=== PATIENT | female | born 1965 | race Caucasian/White ===

== ENCOUNTER 2016-12-29 15:39 | Outpatient (CLI) | payer OTHER ==
[~2016-12-29 15:39] MED LIST: DOCU-144 PO; HYDR-1189 PO; IBUP-1480 PO
== END 2016-12-29 18:34 | disposition home or self-care (01) ==
LOC: SRD 15:39
PROVIDERS: ATTEND Family Medicine
DX: Z12.31 Encounter for screening mammogram for malignant neoplasm of breast (principal); M43.17 Spondylolisthesis, lumbosacral region
CPT/HCPCS: 72110; G0202

== ENCOUNTER 2018-02-07 12:59 | Inpatient (IN) | payer BC, OTHER ==
[~2018-02-07] VITALS: Ht 170.2 cm; Wt 64.6 kg
[~2018-02-07 12:59] MED LIST changes: -IBUP-1480 PO; +IBUP-1971 PO
[2018-02-07 13:06] VITALS: BP_SYST 125
[2018-02-07] MEDS ORDERED: NITROGLYCERIN 0.4 MG TAB.SUBL SL ONE ×2 (13:45→17:00)
[2018-02-07] MEDS ORDERED: ASPIRIN 81 MG TAB.CHEW PO ONE (13:45)
[2018-02-07 14:02] LABS: BASOPHILS # (AUTO) 0.1 K/uL (0.0-0.2); BASOPHILS % (AUTO) 1.9 % (0.0-2.0); EOSINOPHILS # (AUTO) 0.2 K/uL (0.0-0.4); EOSINOPHILS % (AUTO) 2.3 % (0.0-4.0); HEMATOCRIT 43.6 % (36-48); HEMOGLOBIN 14.2 g/dL (12.0-16.0); LYMPHOCYTES # (AUTO) 2.8 K/uL (1.0-5.5); LYMPHOCYTES % (AUTO) 38.9 % (20.5-51.5); MEAN CORPUSCULAR HEMOGLOBIN 29 pg (27-31); MEAN CORPUSCULAR HGB CONC 33 % (32-36); MEAN CORPUSCULAR VOLUME 87 fL (79.0-98.0); MONOCYTES # (AUTO) 0.5 K/uL (0.0-1.0); MONOCYTES % (AUTO) 6.7 % (1.7-9.3); NEUTROPHILS # (AUTO) 3.6 K/uL (1.8-7.7); NEUTROPHILS % (AUTO) 50.2 % (40.0-70.0); PLATELET COUNT (AUTO) 219 K/uL (130-430); RED BLOOD CELL COUNT(AUTO) 4.99 MIL/uL (4.2-6.2); RED CELL DISTRIBUTION WIDTH 13.6 % (9.0-15.0); WHITE BLOOD COUNT (AUTO) 7.2 K/uL (4.8-10.8)
[2018-02-07 14:32] LABS: PROTHROMBIN TIME 10.3 SECS (9.5-12.5)
[2018-02-07 14:43] LABS: CALCIUM 9.5 mg/dL (8.4-11.0); CREATININE 0.65 mg/dL (0.55-1.30); POTASSIUM 3.6 mmol/L (3.5-5.1)
[2018-02-07 14:47] LABS: ALBUMIN 3.6 g/dL (3.4-4.8); TOTAL BILIRUBIN 0.6 mg/dL (0.0-1.0)
[2018-02-07 17:10] VITALS: BP_SYST 108
[2018-02-07] MEDS ORDERED: NITROGLYCERIN 0.4 MG TAB.SUBL SL PRN (17:45)
[2018-02-07] MEDS ORDERED: ACETAMINOPHEN 325 MG TABLET PO PRN (17:45)
[2018-02-07] MEDS ORDERED: TEMAZEPAM 15 MG CAPSULE PO PRN (17:45)
[2018-02-07] MEDS ORDERED: ONDANSETRON HCL 4 MG/2 ML VIAL IVP PRN (17:45)
[2018-02-07] MEDS ORDERED: MORPHINE 2 MG/ML INJ. SYRINGE IVP PRN (17:45)
[2018-02-07 20:00] VITALS: BP_SYST 105
[2018-02-07 23:13] VITALS: BP_SYST 114
[2018-02-08 06:54] LABS: ANION GAP 7 (5-15); CALCIUM 9.2 mg/dL (8.4-11.0); CHLORIDE 106 mmol/L (98-107); CREATININE 0.76 mg/dL (0.55-1.30); GLUCOSE 93 mg/dL (70-99); POTASSIUM 3.7 mmol/L (3.5-5.1); SODIUM SERUM 140 mmol/L (136-145); UREA NITROGEN, BLOOD 15 mg/dL (8-21)
[2018-02-08 06:57] LABS: GFR AFRICAN AMERICAN 102 mL/min (>90)
[2018-02-08 07:08] LABS: ALANINE AMINOTRANSFERASE 22 U/L (12-78); ALBUMIN 3.4 g/dL (3.4-4.8); ASPARTATE AMINOTRANSFERASE 15 U/L (10-37); FREE T4 (FREE THYROXINE) 0.9 ng/dl (0.8-1.5); THYROID STIMULATING HORMONE 0.83 uIu/mL (0.36-3.74); TOTAL BILIRUBIN 0.8 mg/dL (0.0-1.0)
[2018-02-08 07:18] VITALS: BP_SYST 112
[2018-02-08 07:22] LABS: HEMATOCRIT 43.2 % (36-48); HEMOGLOBIN 14.1 g/dL (12.0-16.0); MEAN CORPUSCULAR HEMOGLOBIN 29 pg (27-31); MEAN CORPUSCULAR HGB CONC 33 % (32-36); MEAN CORPUSCULAR VOLUME 87 fL (79.0-98.0); PLATELET COUNT (AUTO) 208 K/uL (130-430); RED BLOOD CELL COUNT(AUTO) 4.96 MIL/uL (4.2-6.2); RED CELL DISTRIBUTION WIDTH 13.4 % (9.0-15.0); WHITE BLOOD COUNT (AUTO) 6.1 K/uL (4.8-10.8)
[2018-02-08 07:53] LABS: CHOLESTEROL 183 mg/dL (<200); HDL CHOLESTEROL 41 mg/dL (>55); LDL CHOLESTEROL 139 mg/dL (<100); TRIGLYCERIDES 102 mg/dL (30-150)
[2018-02-08 08:23] LABS: BASOPHILS % (MANUAL) 0 % (0-2); EOSINOPHILS % (MANUAL) 2 % (0-7); LYMPHOCYTES % (MANUAL) 34 % (20-46); MONOCYTES % (MANUAL) 13 % (0-11)
[2018-02-08] MEDS: ASPIRIN 81 MG TABLET(ECOTRIN) PO SCH (09:16)
[2018-02-08 10:40] VITALS: BP_SYST 112
[2018-02-08 11:25] VITALS: BP_SYST 117
[2018-02-08 17:09] VITALS: BP_SYST 97
[2018-02-08 20:00] VITALS: BP_SYST 91
[2018-02-09 07:33] VITALS: BP_SYST 100
[2018-02-09] MEDS ORDERED: REGADENOSON 0.4 MG/5 ML SYRINGE IVP ONE (09:00)
[2018-02-09 12:16] VITALS: BP_SYST 96
[2018-02-09] MEDS: ASPIRIN 81 MG TABLET(ECOTRIN) PO SCH (13:09)
[2018-02-09 16:13] VITALS: BP_SYST 103
== END 2018-02-09 16:45 | disposition home or self-care (01) | DRG 313 ==
LOC: SED 12:59 → STU 16:33
PROVIDERS: ADMIT Internal Medicine; ATTEND Internal Medicine
DX: R07.89 Other chest pain (principal); Q23.1 Congenital insufficiency of aortic valve; E78.5 Hyperlipidemia, unspecified; Z82.3 Family history of stroke; Z90.710 Acquired absence of both cervix and uterus; Z82.49 Family history of ischemic heart disease and other diseases of the circulatory system
CPT/HCPCS: 36415; 71045; 80053; 80061; 82550-TC; 83735-TC; 83880; 84439; 84443-TC; 84484; 85007; 85025; 85027; 85610-TC; 85730-TC; 93005; 93017; 93306; 99285; A9500; J2785

== ENCOUNTER 2018-10-04 20:21 | Emergency (ER) | payer BC ==
[~2018-10-04] VITALS: Ht 170.2 cm; Wt 72.6 kg
--- NOTE | 2018-10-04 20:25 | NUR ---
Patient triaged and placed in waiting room. VSS and patient appears in no acute distress at this time. Accompanied by visitor, awaiting available bed, and MD notified of need for MSE.
[2018-10-04 20:32] VITALS: BP_SYST 130
--- NOTE | 2018-10-04 20:47 | NUR ---
Chad contreras in [facility] - 10/04/18 at 2048 by [email or web address] Placed in room 4. Placed on campus monitor, blood pressure machine and pulse oximeter. To gown for exam. Side rails up.
--- NOTE | 2018-10-04 21:34 | NUR ---
7Patient to ER bed 3 to gown for evaluation. Side rails up.
--- NOTE | 2018-10-04 21:35 | NUR ---
Patient ambulatory to ED a/o x 4 accompanied by family in mild distress. On first contact patient reports diffuse upper back pain described as aching 8/10 which worsens while coughing. No obvious increased work of breathing, CP or fevers. Patient however reports chills at night.
--- NOTE | 2018-10-04 21:50 | NUR ---
ER Dr. Barrientos at bedside examining patient.
[2018-10-04 22:59] LABS: BASOPHILS # (AUTO) 0.1 K/uL (0.0-0.2); BASOPHILS % (AUTO) 0.6 % (0.0-2.0); EOSINOPHILS # (AUTO) 0.3 K/uL (0.0-0.4); EOSINOPHILS % (AUTO) 2.9 % (0.0-4.0); HEMATOCRIT 38.6 % (36-48); HEMOGLOBIN 12.9 g/dL (12.0-16.0); LYMPHOCYTES # (AUTO) 4.4 K/uL (1.0-5.5); LYMPHOCYTES % (AUTO) 46.7 % (20.5-51.5); MEAN CORPUSCULAR HEMOGLOBIN 29 pg (27-31); MEAN CORPUSCULAR HGB CONC 34 % (32-36); MEAN CORPUSCULAR VOLUME 86 fL (79.0-98.0); MONOCYTES # (AUTO) 0.8 K/uL (0.0-1.0); MONOCYTES % (AUTO) 8.4 % (1.7-9.3); NEUTROPHILS # (AUTO) 3.9 K/uL (1.8-7.7); NEUTROPHILS % (AUTO) 41.4 % (40.0-70.0); PLATELET COUNT (AUTO) 202 K/uL (130-430); RED BLOOD CELL COUNT(AUTO) 4.47 MIL/uL (4.2-6.2); RED CELL DISTRIBUTION WIDTH 13.9 % (9.0-15.0); WHITE BLOOD COUNT (AUTO) 9.4 K/uL (4.8-10.8)
[2018-10-04 23:08] LABS: ANION GAP 7 (5-15); CALCIUM 9.5 mg/dL (8.4-11.0); CHLORIDE 106 mmol/L (98-107); CREATININE 0.87 mg/dL (0.55-1.30); GLUCOSE 111 mg/dL (70-99); POTASSIUM 3.5 mmol/L (3.5-5.1); SODIUM SERUM 141 mmol/L (136-145); UREA NITROGEN, BLOOD 19 mg/dL (8-21)
--- NOTE | 2018-10-04 23:11 | NUR ---
Patient resting in bed in no acute distress. Awaiting result of laboratory diagnostics. No new needs verbalized at this time. Patient understands plan of care.
[2018-10-04 23:17] LABS: ALANINE AMINOTRANSFERASE 26 U/L (12-78); ALBUMIN 3.4 g/dL (3.4-4.8); ASPARTATE AMINOTRANSFERASE 15 U/L (10-37); TOTAL BILIRUBIN 0.3 mg/dL (0.0-1.0)
[2018-10-04 23:21] LABS: GFR AFRICAN AMERICAN 87 mL/min (>90)
[2018-10-05 00:10] VITALS: BP_SYST 128
--- NOTE | 2018-10-05 00:10 | NUR ---
Patient given written and verbal discharge instructions and verbalizes understanding. ER MD discussed with patient the results and treatment provided. Patient in stable condition. ID arm band removed. No Rx given. Patient educated on pain management and to follow up with PMD. Pain Scale 0. Opportunity for questions provided and answered. Medication side effect fact sheet provided.
== END 2018-10-05 00:10 | disposition home or self-care (01) ==
LOC: SED 20:21
DX: M54.6 Pain in thoracic spine (principal); R03.0 Elevated blood-pressure reading, without diagnosis of hypertension; Z90.710 Acquired absence of both cervix and uterus
CPT/HCPCS: 36415; 71045; 80053; 84484; 85025; 85379; 93005; 99284